=== PATIENT | female | born 1955 | race Caucasian/White ===

== ENCOUNTER → 2016-10-23 | Outpatient (CLI) | payer MEDICARE, OTHER | LOC: RAD 15:33 | DX: M51.9 Unspecified thoracic, thoracolumbar and lumbosacral intervertebral disc disorder (principal); M47.892 Other spondylosis, cervical region | CPT/HCPCS: 72072; 72110 ==

== ENCOUNTER → 2020-05-03 | Outpatient (CLI) | payer MEDICARE, OTHER ==
[~2020-05-03] MED LIST: ALBUTEROL1.25 MG/3 INH; ASPIRIN EC81 MG PO; BACLOFEN10 MG PO; CLONIDINE HCL0.2 MG PO; DICYCLOMINE HCL20 MG PO; KEPPRA500 MG PO; LEVOTHYROXINE112 MCG PO; LIPITOR10 MG PO; MIRALAX17 GM PO; MONTELUKAST SOD10 MG PO; NEXIUM40 MG PO; OLANZAPINE10 MG PO; PROMETHAZINE HC25 M1 PO; TOVIAZ8 MG PO; TRAZODONE HCL150 MG PO; VIT B12 PO; VIT D2 PO; XOPENEX INH; XYZAL5 MG PO; ZOFRAN4 MG PO; [UNRECOGNIZED DRUG - OTHER] INH
[2020-05-03 13:48] LABS: BUN/CREATININE RATIO 17 (0-10)
== END ==
LOC: LAB 13:02
PROVIDERS: Internal Medicine Nephrology
DX: N18.30 Chronic kidney disease, stage 3 unspecified (principal); E55.9 Vitamin D deficiency, unspecified
CPT/HCPCS: 80053; 82570; 84156

== ENCOUNTER → 2020-09-26 | Outpatient (CLI) | payer MEDICARE, OTHER | LOC: LAB 14:07 | PROVIDERS: Internal Medicine Nephrology | DX: N18.30 Chronic kidney disease, stage 3 unspecified (principal); E55.9 Vitamin D deficiency, unspecified | CPT/HCPCS: 36415; 80053; 82570; 84156 ==

== ENCOUNTER 2020-12-09 16:00 | Emergency (ER) | payer MEDICARE, OTHER ==
[2020-12-09 18:39] LABS: HEMOGLOBIN 14.9 gm/dl (12.3-15.3); RED BLOOD COUNT 4.61 M/UL (4.00-5.10); WHITE BLOOD COUNT 9.8 K/UL (4.5-11.0)
[2020-12-09 19:04] LABS: BUN/CREATININE RATIO 15 (0-10)
[2020-12-09] MEDS ORDERED: IBUPROFEN400 MG PO (22:55)
== END 2020-12-09 22:55 | disposition home or self-care (01) ==
LOC: ER1 16:00
PROVIDERS: Physician Assistant
DX: M25.551 Pain in right hip (principal); E11.9 Type 2 diabetes mellitus without complications; N18.30 Chronic kidney disease, stage 3 unspecified; M79.89 Other specified soft tissue disorders; F17.210 Nicotine dependence, cigarettes, uncomplicated; Z88.8 Allergy status to other drugs, medicaments and biological substances; Z90.49 Acquired absence of other specified parts of digestive tract
CPT/HCPCS: 71045; 73502; 80053; 82550; 82553; 83874; 83880; 84484; 85025; 99284

== ENCOUNTER → 2021-01-28 | Outpatient (CLI) | payer MEDICARE, OTHER ==
[~2021-01-28] MED LIST changes: +IBUPROFEN400 MG PO
== END ==
LOC: HEART 5 01-09 11:30
DX: I50.9 Heart failure, unspecified (principal); I51.7 Cardiomegaly
CPT/HCPCS: 93306

== ENCOUNTER → 2021-04-02 | Outpatient (CLI) | payer MEDICARE, OTHER | LOC: LAB 14:38 | PROVIDERS: Internal Medicine Nephrology | DX: N18.30 Chronic kidney disease, stage 3 unspecified (principal) | CPT/HCPCS: 36415; 80053; 82570; 84156 ==

== ENCOUNTER → 2021-07-16 | Outpatient (CLI) | payer MEDICARE, OTHER | LOC: MRI 14:11 | DX: G40.209 Localization-related (focal) (partial) symptomatic epilepsy and epileptic syndromes with complex partial seizures, not intractable, without status epilepticus (principal); H70.91 Unspecified mastoiditis, right ear | CPT/HCPCS: 36415; 70553; 82565; 84520; A9577 ==

== ENCOUNTER → 2021-08-01 | Outpatient (CLI) | payer MEDICARE, OTHER ==
[2021-08-01 15:40] LABS: BUN/CREATININE RATIO 22 (0-10)
== END ==
LOC: LAB 14:28
PROVIDERS: Internal Medicine Nephrology
DX: N18.31 Chronic kidney disease, stage 3a (principal); E55.9 Vitamin D deficiency, unspecified
CPT/HCPCS: 36415; 80053; 82570; 84156

== ENCOUNTER → 2021-12-03 | Outpatient (CLI) | payer MEDICARE, OTHER | LOC: LAB 09:59 | PROVIDERS: Internal Medicine Nephrology | DX: N18.31 Chronic kidney disease, stage 3a (principal); E55.9 Vitamin D deficiency, unspecified | CPT/HCPCS: 36415; 80053; 82570; 84156 ==

== ENCOUNTER → 2021-12-03 | Outpatient (CLI) | payer MEDICARE, OTHER | LOC: EXRD 08:34 | DX: N18.31 Chronic kidney disease, stage 3a (principal); N13.30 Unspecified hydronephrosis | CPT/HCPCS: 76775 ==